=== PATIENT | female | born 1950 | race Caucasian/White ===

== ENCOUNTER → 2018-02-27 10:20 | Outpatient (CLI) | payer MEDICARE, BC, SELFPAY | PROVIDERS: PCP Family Medicine; Visit Provider Orthopaedic Surgery | DX: M17.12 Unilateral primary osteoarthritis, left knee (principal) | CPT/HCPCS: 20610; 99213; J1040 ==

== ENCOUNTER 2018-04-30 11:36 | Emergency (ER) | payer MEDICARE, BC, SELFPAY ==
[2018-04-30 11:56] VITALS: BP 144/81; PULSE 71; RESP 18; TEMP 36.5; O2SAT 96
--- NOTE | 2018-04-30 12:30 | W.ED.GENAD ---
Discharge Plan Disposition Patient Disposition: HOME Condition: Stable Discharge Details Chief Complaint: AnimalBite Clinical Impression: Dog bite of extremity Primary Care Provider: Horace Lopez ED Provider: Nayeli Felix Home Meds and New Rx's Prescriptions: New doxycycline hyclate 100 mg capsule 100 mg PO BID Qty: 13 RF: 0 Continue fluoxetine 40 MG capsule 40 mg PO DAILY Qty: 90 RF: 3 levothyroxine 137 MCG tablet 137 mcg PO DAILY Qty: 90 RF: 2 ctribnkyna-naidjsd-bewpeodk [Fiorinal] 50-325-40 mg capsule 1 - 2 cap PO Q8H PRN Qty: 30 RF: 0 Discharge Instructions Instructions: Doxycycline (By mouth), Animal Bite (ED), Cellulitis (ED) Additional Instructions: Please return immediately to the emergency department if you develop any new or worsening symptoms or if he become otherwise concerned. It is extremely important that you make an appointment to see by your primary care doctor within 1 week in follow-up for this visit Referrals: Horace Lopez [Primary Care Provider] - Discharge Data Discharge Date/Time-TO BE ENTERED AT DEPARTURE: 04/30/18 13:19 Medical Decision Making Unique Harris is a 67 y/o woman with h/o hypothyroidism who presented to the emergency department today for new redness yesterday around wounds from dog bite that occurred 4 days ago. On exam Pt is very well and non-toxic appearing. Three 0.5 cm wounds to right forearm, one 0.5 cm wound to left ulnar wrist. Central crusting and 3mm surrounding erythema all wounds. No drainage, no fluctuance, no edema, NTTP. No bony TTP. Exam/hx not c/w retained FB, sepsis, tendon/joint involvement, fx. Concern for possible early cellulitis. Plan for doxycycline as Pt with PNC allergy. Will also update tetanus. Lengthy discussion with Pt re: RTED precautions and importance of outpt f/u with PCP. Pt is amenable to the plan. Medical Records Medical records reviewed: Yes I reviewed the patient's medical records. HPI General Mode of arrival: ambulatory. Date/Time Provider Initiated Documentation: 04/30/18 12:07. Limitations to Documentation: no limitations. Information obtained by: patient, RN notes reviewed and old records reviewed. HPI Narrative: Unique Harris is a 67 y/o woman with h/o hypothyroidism presenting to the emergency deparment with dog bite. Pt reports that 4 days ago she was bitten by a dog that she was fostering. Pt reports that dog was a siberian husky with up to date rabies vaccination. Dog is now back with prior foster home. Pt reports that dog bit her because she was in between the dog and food. She reports bites were superficial to right forearm and right wrist, no other injuries. She has been putting OTC abx ointment on wounds. Pt reports that she noticed redness around the wounds that seems to be worsening today. No drainage, no pain, no fevers, no n/v/d, no other rash. Feels otherwise well and in her usual state of health. Eating and drinking normally. Related Data Home Medications Medication Instructions Recorded Confirmed fluoxetine 40 mg PO DAILY #90 tab-cap 10/30/17 levothyroxine 137 mcg PO DAILY #90 tab-cap 01/31/18 axfydepleh-jorrvvx-bmakkyrf 50 1 - 2 cap PO Q8H PRN #30 tab-cap 04/02/18 mg-325 mg-40 mg capsule doxycycline hyclate 100 mg PO BID #13 cap 04/30/18 Previous Rx's Medication Instructions Recorded fluoxetine 40 mg PO DAILY #90 tab-cap 10/30/17 levothyroxine 137 mcg PO DAILY #90 tab-cap 01/31/18 emwlkeslgm-zjvoqzh-iebrtqnm 50 1 - 2 cap PO Q8H PRN #30 tab-cap 04/02/18 mg-325 mg-40 mg capsule doxycycline hyclate 100 mg PO BID #13 cap 04/30/18 Allergies Allergy/AdvReac Type Severity Reaction Status Date / Time Penicillins Allergy Severe Anaphylaxsi Unverified 04/30/18 11:59 s General Stated Complaint: AnimalBite BRANDON: 4 Review of Systems Review of Systems Constitutional: denies fevers Eyes: denies eye pain ENT: denies facial pain, dental pain, sore throat Cardiovascular: denies chest pain Respiratory: denies SOB, cough GI: denies abdominal pain, vomiting, diarrhea : denies flank pain MSK: denies back pain, neck pain, arthralgias, myalgias Skin: denies rash, reports skin wounds Neuro: denies headaches, weakness, n/t PFSH Family History Mother Essential hypertension Personal history of malignant neoplasm Depression Hyperlipidemia Cerebrovascular accident Father Heart disease Asthma Brother Alcohol abuse Essential hypertension Hyperlipidemia Grandfather Heart disease Grandfather Personal history of malignant neoplasm Heart disease Grandmother Personal history of malignant neoplasm Grandmother Heart disease Son No problems noted. Daughter No problems noted. Daughter No problems noted. Social History Smoking/Tobacco Use Status: Never Surgical History BUNIONECTOMY Ligation of fallopian tube Reduction mammoplasty Exam Narrative Exam Narrative: Constitutional: well and dii-vegnz-pctfqjhgs, pleasant, conversing normally HENT: head atraumatic, normocephalic normal inspection, mucous membranes moist Eyes: conjunctiva normal, sclera normal, pupils 3mm b/l Neck: no stridor, normal ROM, trachea midline Resp: normal work of breathing, LCTAB Cardio: normal rate, normal rhythm, no murmur appreciated Skin: warm, dry, normal color, no rash. 3 0.5cm healing wounds right forearm with 2-3mm surrounding erythema, 1 0.5cm healing wound left ulnar wrist with 2-3mm surrounding erythema, no drainage, no fluctuance, no edema, no bony TTP of either forearm or wrist, FROM b/l wrists, painless Neuro: alert, not altered, grossly non-focal, normal tone Psych: normal mood, normal affect, normal behavior Course Vital Signs Temperature 36.5 C 04/30/18 11:56 Pulse 71 04/30/18 11:56 Respiratory Rate 18 04/30/18 11:56 Blood Pressure 144/81 H 04/30/18 11:56 Pulse Oximetry 96 04/30/18 11:56 Temperature 36.5 C 04/30/18 11:56 Temperature Source Temporal Artery Scan 04/30/18 11:56 Pulse 71 04/30/18 11:56 Respiratory Rate 18 04/30/18 11:56 Blood Pressure 144/81 H 04/30/18 11:56 Pulse Oximetry 96 04/30/18 11:56 Oxygen Delivery Method Room Air 04/30/18 11:56 Oxygen Flow Rate 0 04/30/18 11:56 Pain Level 4 04/30/18 11:56
[2018-04-30] MEDS: Doxycycline Hyclate 100 MG CAP PO (13:15)
--- NOTE | 2018-04-30 17:44 | NUR.NOTE ---
Nursing Note: Faxed the animal bite report form to the [facility] [employer] for follow up. Received a call later in the afternoon from Rosenda Aguilera the animal nutritionist and she stated the dog was UTD and that she had followed up on the report. Ruthie Owen.
--- NOTE | 2018-05-01 20:54 | ED.GENADUL_ITS ---
Discharge Plan Disposition Patient Disposition: HOME Condition: Stable Discharge Details Chief Complaint: AnimalBite Clinical Impression: Dog bite of extremity Primary Care Provider: Horace Lopez ED Provider: Nayeli Felix Home Meds and New Rx's Prescriptions: New doxycycline hyclate 100 mg capsule 100 mg PO BID Qty: 13 RF: 0 Continue fluoxetine 40 MG capsule 40 mg PO DAILY Qty: 90 RF: 3 levothyroxine 137 MCG tablet 137 mcg PO DAILY Qty: 90 RF: 2 nveaxlbgsh-exmeuhy-pwvmglek [Fiorinal] 50-325-40 mg capsule 1 - 2 cap PO Q8H PRN Qty: 30 RF: 0 Discharge Instructions Instructions: Doxycycline (By mouth), Animal Bite (ED), Cellulitis (ED) Additional Instructions: Please return immediately to the emergency department if you develop any new or worsening symptoms or if he become otherwise concerned. It is extremely important that you make an appointment to see by your primary care doctor within 1 week in follow-up for this visit Referrals: Horace Lopez [Primary Care Provider] - Discharge Data Discharge Date/Time-TO BE ENTERED AT DEPARTURE: 04/30/18 13:19 Medical Decision Making Unique Harris is a 67 y/o woman with h/o hypothyroidism who presented to the emergency department today for new redness yesterday around wounds from dog bite that occurred 4 days ago. On exam Pt is very well and non-toxic appearing. Three 0.5 cm wounds to right forearm, one 0.5 cm wound to left ulnar wrist. Central crusting and 3mm surrounding erythema all wounds. No drainage, no fluctuance, no edema, NTTP. No bony TTP. Exam/hx not c/w retained FB, sepsis, tendon/joint involvement, fx. Concern for possible early cellulitis. Plan for doxycycline as Pt with PNC allergy. Will also update tetanus. Lengthy discussion with Pt re: RTED precautions and importance of outpt f/u with PCP. Pt is amenable to the plan. Medical Records Medical records reviewed: Yes I reviewed the patient's medical records. HPI General Mode of arrival: ambulatory . Date/Time Provider Initiated Documentation: 04/30/18 12:07 . Limitations to Documentation: no limitations . Information obtained by: patient, RN notes reviewed and old records reviewed . HPI Narrative: Unique Harris is a 67 y/o woman with h/o hypothyroidism presenting to the emergency deparment with dog bite. Pt reports that 4 days ago she was bitten by a dog that she was fostering. Pt reports that dog was a siberian husky with up to date rabies vaccination. Dog is now back with prior foster home. Pt reports that dog bit her because she was in between the dog and food. She reports bites were superficial to right forearm and right wrist, no other injuries. She has been putting OTC abx ointment on wounds. Pt reports that she noticed redness around the wounds that seems to be worsening today. No drainage, no pain, no fevers, no n/v/d, no other rash. Feels otherwise well and in her usual state of health. Eating and drinking normally. Related Data Home Medications Medication Instructions Recorded Confirmed fluoxetine 40 mg PO DAILY #90 tab-cap 10/30/17 levothyroxine 137 mcg PO DAILY #90 tab-cap 01/31/18 nxjcfmqgec-lojlcrt-jbakaxgg 50 1 - 2 cap PO Q8H PRN #30 tab-cap 04/02/18 mg-325 mg-40 mg capsule doxycycline hyclate 100 mg PO BID #13 cap 04/30/18 Previous Rx's Medication Instructions Recorded fluoxetine 40 mg PO DAILY #90 tab-cap 10/30/17 levothyroxine 137 mcg PO DAILY #90 tab-cap 01/31/18 wtbkthzujz-qqiczmk-wpodieqd 50 1 - 2 cap PO Q8H PRN #30 tab-cap 04/02/18 mg-325 mg-40 mg capsule doxycycline hyclate 100 mg PO BID #13 cap 04/30/18 Allergies Allergy/AdvReac Type Severity Reaction Status Date / Time Penicillins Allergy Severe Anaphylaxsi Unverified 04/30/18 11:59 s General Stated Complaint: AnimalBite BRANDON: 4 Review of Systems Review of Systems Constitutional: denies fevers Eyes: denies eye pain ENT: denies facial pain, dental pain, sore throat Cardiovascular: denies chest pain Respiratory: denies SOB, cough GI: denies abdominal pain, vomiting, diarrhea : denies flank pain MSK: denies back pain, neck pain, arthralgias, myalgias Skin: denies rash, reports skin wounds Neuro: denies headaches, weakness, n/t PFSH Family History Mother Essential hypertension Personal history of malignant neoplasm Depression Hyperlipidemia Cerebrovascular accident Father Heart disease Asthma Brother Alcohol abuse Essential hypertension Hyperlipidemia Grandfather Heart disease Grandfather Personal history of malignant neoplasm Heart disease Grandmother Personal history of malignant neoplasm Grandmother Heart disease Son No problems noted. Daughter No problems noted. Daughter No problems noted. Social History Smoking/Tobacco Use Status: Never Surgical History BUNIONECTOMY Ligation of fallopian tube Reduction mammoplasty Exam Narrative Exam Narrative: Constitutional: well and tgm-jtcug-oarxidlwd, pleasant, conversing normally HENT: head atraumatic, normocephalic normal inspection, mucous membranes moist Eyes: conjunctiva normal, sclera normal, pupils 3mm b/l Neck: no stridor, normal ROM, trachea midline Resp: normal work of breathing, LCTAB Cardio: normal rate, normal rhythm, no murmur appreciated Skin: warm, dry, normal color, no rash. 3 0.5cm healing wounds right forearm with 2-3mm surrounding erythema, 1 0.5cm healing wound left ulnar wrist with 2- 3mm surrounding erythema, no drainage, no fluctuance, no edema, no bony TTP of either forearm or wrist, FROM b/l wrists, painless Neuro: alert, not altered, grossly non-focal, normal tone Psych: normal mood, normal affect, normal behavior Course Vital Signs Temperature 36.5 C 04/30/18 11:56 Pulse 71 04/30/18 11:56 Respiratory Rate 18 04/30/18 11:56 Blood Pressure 144/81 H 04/30/18 11:56 Pulse Oximetry 96 04/30/18 11:56 Temperature 36.5 C 04/30/18 11:56 Temperature Source Temporal Artery Scan 04/30/18 11:56 Pulse 71 04/30/18 11:56 Respiratory Rate 18 04/30/18 11:56 Blood Pressure 144/81 H 04/30/18 11:56 Pulse Oximetry 96 04/30/18 11:56 Oxygen Delivery Method Room Air 04/30/18 11:56 Oxygen Flow Rate 0 04/30/18 11:56 Pain Level 4 04/30/18 11:56
== END 2018-04-30 13:19 | disposition home or self-care (01) ==
PROVIDERS: Emergency Provider Student in an Organized Health Care Education/Training Program; PCP Family Medicine
DX: S51.851A Open bite of right forearm, initial encounter (principal); S61.552A Open bite of left wrist, initial encounter; W54.0XXA Bitten by dog, initial encounter
CPT/HCPCS: 90471; 99284; 99283

== ENCOUNTER → 2018-05-29 08:57 | Outpatient (BNVA) | payer MEDICARE, BC, SELFPAY | PROVIDERS: PCP Family Medicine; Visit Provider Orthopaedic Surgery | DX: M17.12 Unilateral primary osteoarthritis, left knee (principal); M75.31 Calcific tendinitis of right shoulder | CPT/HCPCS: 20610; 99211; 99213; J1040 ==

== ENCOUNTER → 2018-08-27 09:26 | Outpatient (BNVA) | payer MEDICARE, OTHER, SELFPAY | PROVIDERS: PCP Family Medicine; Referring Provider Family Medicine; Visit Provider Orthopaedic Surgery | DX: M17.12 Unilateral primary osteoarthritis, left knee (principal); M75.81 Other shoulder lesions, right shoulder | CPT/HCPCS: 20610; 99211; 99213; J1040 ==

== ENCOUNTER 2018-11-15 02:08 | Outpatient (CLI) | payer MEDICARE, OTHER, SELFPAY ==
[2018-11-15 09:39] LABS: HCT 43.7 % (36.0-46.0); HGB 14.6 g/dL (12.0-15.5); Mean Corp. HGB Concentration 33.4 g/dL (32.0-36.0); Mean Corpuscular Hemoglobin 30.9 pg (27.0-33.0); Mean Corpuscular Volume 92.6 fL (80-95); Mean Platelet Volume 9.3 fL (8.0-11.0); Platelet Count 278 x1000/uL (130-400); RBC 4.72 m/cumm (4.00-5.20); RBC Distribution Width 13.1 % (11.7-14.6); White Blood Cell Count 4.96 k/cumm (4.4-10.8)
[2018-11-15 10:15] LABS: ALT 24 U/L (12-78); AST 16 U/L (15-37); Albumin 3.7 g/dL (3.4-5.0); Alkaline Phosphatase 68 U/L (46-116); Anion Gap 9.2 mmol/L (3-11); BUN 13 mg/dL (7-18); Bilirubin, Total 0.6 mg/dL (0.2-1.0); CO2 26.8 mmol/L (21.0-32.0); CREATININE 0.82 mg/dL (0.55-1.02); Calcium 8.9 mg/dL (8.5-10.1); Chloride 101 mmol/L (98-107); Cholesterol 220 mg/dL (50-200); Glucose 92 mg/dL (70-100); HDL Cholesterol 56 mg/dL (40-60); LDL CHOLESTEROL 145 mg/dL (<100); Potassium 4.1 mmol/L (3.5-5.1); Sodium 137 mmol/L (136-145); TSH (W/Ref FT4) 0.95 uIU/mL (0.358-3.74); Total Protein 6.7 g/dL (6.4-8.2); Triglyceride 110 mg/dL (30-150)
== END 2018-11-15 02:28 ==
PROVIDERS: PCP Family Medicine; Visit Provider Family Medicine
DX: E03.9 Hypothyroidism, unspecified (principal); E78.5 Hyperlipidemia, unspecified
CPT/HCPCS: 36415; 80053; 80061; 83721; 85027; 84443

== ENCOUNTER → 2018-12-06 09:15 | Outpatient (BNVA) | payer MEDICARE, OTHER, SELFPAY | PROVIDERS: PCP Family Medicine; Referring Provider Family Medicine; Visit Provider Orthopaedic Surgery | DX: M17.12 Unilateral primary osteoarthritis, left knee (principal) | CPT/HCPCS: 20610; 99211; 99212; J1040 ==

== ENCOUNTER → 2019-01-09 13:36 | Outpatient (BNVA) | payer MEDICARE, OTHER, SELFPAY | PROVIDERS: PCP Family Medicine; Referring Provider Family Medicine; Visit Provider Student in an Organized Health Care Education/Training Program | DX: M17.12 Unilateral primary osteoarthritis, left knee (principal); M25.562 Pain in left knee; Z98.890 Other specified postprocedural states | CPT/HCPCS: 99214 ==

== ENCOUNTER 2019-02-26 11:54 | Outpatient (CLI) | payer MEDICARE, OTHER, SELFPAY ==
--- NOTE | 2019-02-26 11:40 | DI.RAD_ITS ---
SYMPTOM/DIAGNOSIS: PREOPERATIVE PLANNING FOR LEFT TKA STANDING ALIGNMENT: Standing AP views wee performed from the upper pelvis through the ankles. The hip joint spaces are well maintained. There is a slight leg length discrepancy at the right femoral head projecting slightly above the left. There are degenerative changes of the left knee greater at the lateral femoral tibial joint with valgus angulation at the knee. There are mild degenerative changes of both ankles and mild to moderate degenerative changes of the right knee. There is mild valgus angulation at the right knee. IMPRESSION: Degenerative changes of both knees with valgus angulation, left greater than right.
== END 2019-02-26 12:14 ==
PROVIDERS: PCP Family Medicine; Visit Provider Physician Assistant
DX: M17.12 Unilateral primary osteoarthritis, left knee (principal); M21.70 Unequal limb length (acquired), unspecified site; M19.071 Primary osteoarthritis, right ankle and foot; M19.072 Primary osteoarthritis, left ankle and foot; M21.061 Valgus deformity, not elsewhere classified, right knee; Z01.818 Encounter for other preprocedural examination; M25.562 Pain in left knee; Z01.812 Encounter for preprocedural laboratory examination
CPT/HCPCS: 36415; 80048; 85027; 77073

== ENCOUNTER 2019-02-26 12:47 | Outpatient (CLI) | payer MEDICARE, OTHER, SELFPAY ==
--- NOTE | 2019-02-26 12:07 | W.PREOPHP ---
Assessment and Plan (1) Primary osteoarthritis of left knee: Current visit: No Status: Chronic Plan: Standing alignment x-rays were ordered for preoperative planning. Educated patient on surgery covering surgical technique via models, recovery process, benefits and risks including but not limited to risk of infection, blood clot, damage to soft tissue/blood vessels/nerves in detail. After discussion patient gives verbal understanding of risks and elects to proceed with scheduling surgery. Patient had opportunity to have questions answered to their satisfaction. They will contact office if issues arise. Patient will continue to be scheduled for left total knee replacement with Dr. Gustafson. History of Present Illness Narrative: Ms. Harris is a 68-year-old female who presents to clinic for pre-operative visit for scheduled left TKA with Dr. Gustafson. Patient has been experiencing left knee pain for several years. Over the past 2 years patient has made drastic activity modifications and received several intra-articular injections by Dr. Radford which provided pain relief for a few months. Unfortunately, patient has continued to restrict her activity to the point where she had to sell her horse since she is no longer able horseback ride due to exquisite left knee pain. Patient also has diffuse left knee pain elicited with prolonged walking. Due to patient's discomfort, limited motion and feelings of stiffness she is hesitant to engage in desired activity as well as play with her grandchildren. In addition her knee feels weak which causes her to avoid prolonged walking. Patient denies any known falls or injuries to left knee. Patient has been treating her discomfort with taking Aleve daily which helps to reduce her pain slightly. On previous x-rays patient has severe lateral compartment arthritis as well as valgus deformity. As per Dr. Gustafson's latest note patient had an MRI in [address] Radford which also showed focal areas of cartilage loss within the medial compartment. Due to patient's continued pain despite activity modification, injections and NSAIDs she was offered surgical intervention and elects to proceed. Pertinent Surgical Information Denies past medical history of: Hypertension, stroke, cardiac issues, angina, asthma, COPD, sleep apnea, renal issues, liver issues, hepatitis, gastrointestinal issues, ulcers, bleeding disorders, seizures, anxiety, diabetes, autoimmune disorders Patient reports when she had her emergent she received inadequate anesthesia causing her to feel most of the procedure. She has had surgeries with required anesthesia following her including left and right bunionectomies at [facility] (~13 years ago) but continues to be anxious regarding all aspects of anesthesia due to fear of having inadequate pain control. Due to patient's anxiety she met with a nurse supervisor bottle machines at her appointment today to help answer her questions and develop a plan. Patient also reports being diagnosed with heart murmur while in high school or college. As per patient she underwent a cardiac work-up which did not reveal any murmur or structural disease. Patient denies any issues or additional reports of murmur since that time as a young teen. Patient denies all cardiac review of systems at today's appointment. Denies prior complications from surgery. Review of Systems Constitutional Denies fever(s), Denies frequent falls and Reports headache(s) (most migraines; reports are less frequent) Eyes Denies change in vision ENT Denies dizziness, Denies ear discharge, Reports headache(s) (most migraines; reports are less frequent), Denies epistaxis, Denies nasal discharge and Denies sore throat Cardiovascular Denies chest pain, Denies rapid heart rate, Denies irregular heart rhythm, Denies dyspnea, Denies dyspnea on exertion, Denies orthopnea, Denies paroxysmal nocturnal dyspnea and Denies slow heart rate Respiratory Denies cough, Denies dyspnea, Denies dyspnea on exertion and Denies wheezing Gastrointestinal Denies abdominal pain, Denies melena, Denies hematochezia, Denies constipation, Denies diarrhea, Denies nausea and Denies vomiting Genitourinary Denies hematuria, Denies dysuria and Denies urinary urgency Musculoskeletal Reports as per HPI, Denies numbness and Reports tingling (in right arm with riding in a car) Neurologic Denies dizziness, Denies frequent falls, Reports headache(s) (most migraines; reports are less frequent), Denies numbness and Reports tingling (in right arm with riding in a car) Allergic/Immunologic Denies wheezing [facility] Medical History Actinic keratosis (Chronic) [facility] [place] derm [place]/[facility] Depressive disorder (Chronic) 2010 RECURRENT Hyperlipidemia (Acute) Hypothyroidism (Acute 09/21/12) Migraine (Acute 07/04/13) Osteopenia (Acute) Surgical History BUNIONECTOMY bilateral History of section (Chronic) Hx of hernia repair (Chronic) Right side back in the 90s per pt. Ligation of fallopian tube Reduction mammoplasty B/L Family History Mother Essential hypertension Personal history of malignant neoplasm COLON Depression Hyperlipidemia Stroke Father Heart disease Asthma Brother Alcohol abuse Essential hypertension Hyperlipidemia Grandfather Heart disease Grandfather Personal history of malignant neoplasm LUNG Heart disease Grandmother Personal history of malignant neoplasm COLON Grandmother Heart disease Son No problems noted. Daughter No problems noted. Daughter No problems noted. Social History (Updated 02/26/19 @ 12:15 by Katie Mc) Smoking/Tobacco Use Status: Never Alcohol Intake: never Drug use: Never current occupation: educator Other: - [employer] What is your relationship status?: Panel score (0-1 are the most socially isolated patients): 1 Do you feel safe in your relationship?: Yes Meds Home Medications Medication Instructions Recorded Confirmed Type gfvwleiujj-lskdrux-svzrsmzc 50 1 - 2 cap PO Q8H PRN #30 tab-cap 04/02/18 02/26/19 Rx mg-325 mg-40 mg capsule levothyroxine 137 mcg tablet 137 mcg PO DAILY #90 tab-cap 11/29/18 02/26/19 Rx fluoxetine 40 mg capsule 40 mg PO DAILY #90 tab-cap 02/06/19 02/26/19 Rx vitamins A,C,Y-itql-nushwi 7,160 1 tab PO BID tab 02/26/19 02/26/19 History unit-113 mg-100 unit tablet Allergies Allergy/AdvReac Type Severity Reaction Status Date / Time Penicillins Allergy Severe Anaphylaxsi Unverified 02/26/19 12:56 s Exam Const General: cooperative and no acute distress [facility] Head: normal to inspection, normocephalic and atraumatic Ears: external ears normal General nose exam: external nose normal and no nasal discharge Face and sinus: face symmetric Mouth: oral mucosae normal, lip normal, tongue normal and moist mucous membranes Teeth and gingiva: dentition normal Throat: posterior oropharynx normal Eyes General: appearance normal, both eyes and all related structures Pupils: PERRL EOM: EOM intact bilaterally Neck Neck: trachea midline Carotids: normal carotid upstroke Lymphatic: no lymphadenopathy noted Resp Effort & Inspection: normal respiratory effort and able to speak in complete sentences Auscultation: clear to auscultation bilaterally, no rales, no rhonchi and no wheezes Cardio Heart Sounds: S1 normal, S2 normal and no murmurs (no murmur was appreciated by provider at today's appointment) Pulses: radial pulses present bilaterally GI Palpation: soft, no hepatosplenomegaly and nontender Auscultation: normal bowel sounds Skin General skin exam: no rashes or lesions noted Results Labs : 02/26/19 13:40 02/26/19 13:40
[2019-02-26 14:15] LABS: HCT 42.4 % (36.0-46.0); HGB 14.5 g/dL (12.0-15.5); Mean Corp. HGB Concentration 34.2 g/dL (32.0-36.0); Mean Corpuscular Hemoglobin 30.7 pg (27.0-33.0); Mean Corpuscular Volume 89.8 fL (80-95); Mean Platelet Volume 9.6 fL (8.0-11.0); Platelet Count 308 x1000/uL (130-400); RBC 4.72 m/cumm (4.00-5.20); RBC Distribution Width 13.1 % (11.7-14.6); White Blood Cell Count 6.97 k/cumm (4.4-10.8)
[2019-02-26 21:13] LABS: Anion Gap 13.2 mmol/L (3-11); BUN 20 mg/dL (7-18); CO2 22.8 mmol/L (21.0-32.0); CREATININE 0.82 mg/dL (0.55-1.02); Chloride 104 mmol/L (98-107); Glucose 79 mg/dL (70-100); Potassium 4.1 mmol/L (3.5-5.1); Sodium 140 mmol/L (136-145)
== END 2019-02-26 13:07 ==
PROVIDERS: PCP Family Medicine; Visit Provider Student in an Organized Health Care Education/Training Program
DX: M25.562 Pain in left knee (principal); M17.12 Unilateral primary osteoarthritis, left knee; Z01.812 Encounter for preprocedural laboratory examination; Z01.818 Encounter for other preprocedural examination
CPT/HCPCS: 36415; 80048; 84520; 85027

== ENCOUNTER 2019-03-05 12:43 | Inpatient (IN) | payer MEDICARE, OTHER, SELFPAY ==
[2019-02-26 12:46] VITALS: BP 128/84; PULSE 77; RESP 16; TEMP 36.5; O2SAT 97
[2019-03-05] VITALS (12 sets, daily range): BP systolic 97–138; BP diastolic 59–87; PULSE 56–76; RESP 12–22; TEMP 36–36.6; O2SAT 95–100
[2019-03-05] MEDS: Lactated Ringers 1,000 ML 80 ML IV ×3 (12:10→17:04)
[2019-03-05] MEDS: Celecoxib 200 MG CAP 400 MG PO (12:42)
[2019-03-05] MEDS: Gabapentin 300 MG CAP PO ×2 (12:42→21:23)
[2019-03-05] MEDS: Acetaminophen 500 MG TAB 1000 MG PO ×2 (12:42→20:10)
[2019-03-05] MEDS: oxyCODONE-CR 10 MG TABCR PO (12:43)
[2019-03-05] MEDS: Bupivacaine 0.25% Pres-Free 30 ML VIAL ×2 (13:05→15:00)
[2019-03-05] MEDS: Bupivacaine 0.25% Pres-Free 10 ML VIAL (15:00)
[2019-03-05] MEDS: Ketorolac 30 MG/ML VIAL (15:00)
[2019-03-05] MEDS: Normal Saline 20 ML VIAL (15:00)
--- NOTE | 2019-03-05 16:52 | NUR.NOTE ---
Nursing Note: Patient arrives from PACU via stretcher at 1630. Transferred to bed via hover mat. VSS. See worklist. HR regular. Apical heart rate 54. Lungs clear, normal bowel sounds. Patient alert and oriented x3. Denies pain at this time. Sipping on iced water. Positive pedal pulses bilaterally. Rosado draining. Patient reports tingling in feet bilaterally. No numbness. Patient able to move and wiggle toes.
[2019-03-05] MEDS: Celecoxib 200 MG CAP PO (20:10)
[2019-03-06 03:35] VITALS: BP 112/69; PULSE 62; RESP 17; TEMP 36.3; O2SAT 95
[2019-03-06] MEDS: oxyCODONE 5 MG TAB PO ×2 (05:46→11:31)
[2019-03-06] MEDS: Lactated Ringers 1,000 ML 80 ML IV (05:47)
--- NOTE | 2019-03-06 06:30 | ROE_ITS ---
Date of service: 03/05/19 Time of Service: 16:30 Operative Note DATE OF PROCEDURE: 03/05/19 PRE-OP DIAGNOSIS: Left Knee Arthritis POST-OP DIAGNOSIS: same PROCEDURE: Left Total Knee Arthroplasty with Intraoperative Navigation SURGEON: Gwyn Gustafson DATA ENTRY SPECIALIST: Katie Mc ANESTHESIA: regional and spinal ESTIMATED BLOOD LOSS: 200 PATHOLOGY: none sent TOURNIQUET TIME: 34 COMPLICATIONS: None Patient was transported to: PACU Patient's condition: stable Implants: 1. Depuy Attune Posterior Stabilized Femoral Component, Size 6 Narrow 2. Depuy Attune Fixed Platform Tibial Component, Size 4 3. Depuy Attune 6x6 Fixed, Stabilized Poly 4. Depuy Attune Patellar Component, Size 32mm Indications: I have seen Unique in clinic for symptoms of knee arthritis, confirmed with radiographic findings. She has exhausted nonoperative methods and was having significant limitations in daily function and desired better function and less pain. I discussed the technical details of a knee replacement. I explained the risks of the procedure to include, but not limited to, bleeding, infection, pain, stiffness, fracture, damage to nerves and vessels, damage to muscles and tendons, loosening, need for repeat procedure, blood clot and cardiopulmonary demise. Despite these risks, Unique elected to proceed. Findings: There was significant signs of arthritis throughout the knee. These involved all 3 compartments, most notably of the lateral tibia and femur. Procedure Description: Unique was greeted in the preoperative holding area where the correct side was identified and marked. The consent was reviewed with the patient and signed. The history and physical was updated. All questions were answered. Preoperative mediacations were administered: Acetaminophen 1000mg, Celebrex 400mg, Gabapentin 300mg, and Oxycontin 10mg. An adductor canal block was then administered by the anesthesia team in the PACU. Unique was taken back to the operating room. A spinal anesthestic was then administered. The patient was placed into the supine position on the operating room table. A nonsterile tourniquet was placed high onto the leg but only used for cementing. Posts were placed for positioning during the procedure. All bony prominences were well padded. Prophylactic antibiotics in the form of Vancomycin were administered. 1g of Tranxemic Acid was given intravenously within 30 minutes of incision. The left leg was then prepped with Chloraprep and draped in a standard fashion with impervious stockinette and extremity drape with Iodine impregnated skin protection. A timeout to confirm correct identity, side and site, procedure, allergies, anesthesia, and medical concerns was performed. With the knee in some flexion, a midline incision was made overlying the knee. Full thickness skin flaps were raised once the extensor mechanism was encountered. These were raised medially and laterally. Any bleeding was controlled with electrocautery. Once the extensor mechanism was fully exposed, a medial parapatellar arthrotomy was performed in a flexed position. All bleeding from the arthrotomy and the geniculate arteries was coagulated. A medial subperiosteal peel was performed with electrocautery to the midcoronal plane. The fat pad was removed while keeping the patellar tendon protected. The anterior distal femur synovium was removed for later visualization. The ACL and PCL were resected and the anterior horn of the lateral meniscus was transected. The knee was then flexed with the patella everted. Large osteophytes from the tibia were removed. Large osteophytes from the femur were removed. There was some hypoplasia of the lateral femoral condyle and any remnant cartilage of the medial femoral condyle was removed for appropriate thickness. A single starting pin was then placed 1cm anterior to the PCL insertion and the notch in the direction of the femoral head. The OrthoAlign device was applied over the pin. It was oriented to be in line with the epicondylar axis and the trochlear groove. It was then pinned into place. The navigation computer was then turned on and calibrated. The distal femur cut was set at 0 degrees varus/valgus and 2.5 degrees flexion. The distal femur cutting guide then was positioned for a 9mm cut. The distal femur was cut with an oscillating saw while protecting the soft tissues. The tibia was then addressed. The OrthoAlign device was placed over the tibial tubercle and medial tibia and secured into position. Once again, OrthoAlign was calibrated and then set for a 0 degree varus/valgus cut and 3 degrees of posterior slope. With this locked into position, the cut thickness stylus was used to assess cut thickness. The lateral side, most involved side, was set for a 4mm cut. This was then held in position and pinned into place with 2 additional pins and a cross pin for stability. The medial and lateral collateral ligaments were protected and the cut was performed. With this completed, it was assessed and noted to be of appropriate dimensions. The guide and OrthoAlign was removed. A spacer block was inserted and the knee was brought into extension. The 6mm spacer block provided full extension, without hyperextension and with stability of both the medial and lateral collateral ligaments was assessed. The pins from the femur and the tibia were then removed. The distal femur was then sized. The anterior stylus was placed onto the lateral ridge of the anterior femur. This indicated a size 6 narrow femur. The external rotation of the guide was adjusted to 3 degrees to match the epicondylar axis, perpendicular to [place]?s line. The 4-in-1 cutting guide was the placed. The posterior medial femur cut was evaluated and appeared of good thickness. The spacer block was inserted underneath the cutting guide and stability was confirmed in 90 degrees of flexion. An shalini wing was used to confirm appropriate position of the anterior cut to avoid notching. This cutting guide was ensured to be flush on the cut surface and then pinned into place with headed pins. While protecting the soft tissues, quad tendon, and collateral ligaments, the anterior and posterior cuts were performed with a saw. The central two pins were removed and the posterior and anterior chamfers were cut next. The notch-cutting guide was placed. This was pinned to lateralize the femoral component as much as possible while keeping it flush on the cut surface. This was then pinned into position. A reciprocating saw was used to make the notch cut. A rasp smoothed the cut surfaces. A trial posterior stabilized femoral component was then inserted, impacted down to the cut surfaces, and the lug holes were drilled. A provisional trial tibial component was placed and the knee was brought through range of motion. There was noted to be excellent extension and flexion. There was no significant instability. The patella was tracking without thumbs. The tibial cut surface was fully exposed. The medial and lateral menisci were removed. The tibia was then sized as a 4. The tibia had been previously marked during trialing to correspond to the center of the tibial component to help with rotation. The trial was aligned to this francisco, approximately rotated to the medial 1/3rd of the tibial tubercle. The trial was pinned into place. The tibia was prepared with a reamer and a keel punch. The knee was then brought into extension and the patella was measured as 25mm. Using the patellar clamp and cut guide, this was resected to a flat surface with at least 13mm of thickness remaining. The size 32mm patella fit the best. This was oriented and then clamped into position. The lugs were drilled. The trial components were removed. The final components, except for the polyethylene were opened on the back table. The periosteal and capsular tissues, especially posteriorly, around the knee were then systematically injected with a periarticular cocktail consisting of 50cc 0.25% Marcaine, 30mg Ketorolac, 20cc of Exparal and 50cc of injectable saline. The tourniquet was then inflated to 275mmHg. The knee was thoroughly irrigated with a pulse lavage and dried. On the back table, with the implants opened, the cement was mixed. 2 batches of antibiotic laden cement were prepared with vacuum assistance. After the cement was ready a small amount was placed on to the back side of the tibial component at the keel. A small amount was placed onto the posterior flange of the femur. Cement was manual pressurized and impregnated into the cut surface of the tibia. The tibial component was then inserted into the cut surface and impacted into position. Excess cement was removed and the component was reimpacted. Again, excess cement was removed and our attention was then turned to the femur. The femoral cut surface was once again dried and cement was manually impacted into the cut surface. The femoral component was lined with the lug holes and impacted. Excess cement was removed. It was ensured to be down against the cut surface. The trial polyethylene was then inserted and the leg was brought out into full extension for the duration of the cement curing process, approximately 15min. Cement was lastly manually impacted into the cut surface of the patella and the patellar button was clamped into position and held. During this process attention was turned to the gutters of the knee and for all interfaces for any excess cement. After the cement had finally cured, approximately 15min, the clamp was removed from the patella and the knee was taken through range of motion. A size 6mm polyethylene component provided the best range of motion and stability with less than 2mm gapping with medial and lateral stress and full extension without significant hyperextension. The patella was tracking with a no-thumbs technique. The trial poly was removed and once again the knee was checked for any loose, excess, or errant cement. The poly component was then inserted and impacted into position after cleaning and drying the tibial tray. The capsule was then reapproximated with a No. 1 Vicryl at multiple locations. The capsule was finally closed with a No. 2 Stratafix, barbed suture. The tourniquet was then released and the arthrotomy appeared watertight without significant bleeding. The second dosing of 1g TXA was started. Deep tissues were then reapproximated with 0 Vicryl and 2-0 Vicryl. The skin was closed with a running 3-0 Monocryl in a subcuticular fashion. This was reinforced with skin glue. A Mepilex silver dressing was applied along with a [id number] MICHAEL wrap. A CryoCuff was applied. Unique was transferred to the hospital bed without difficulty an suffering no apparent complication. Unique has a good prognosis. Physical therapy will start today and without restrictions, weight-bearing as tolerated. Aspirin 81mg BID will be used for DVT prophylaxis.
--- NOTE | 2019-03-06 07:44 | W.PM.PROGNOT ---
Date of Service Date of service: 03/06/19 Time of Service: 07:44 Assessment and Plan (1) Primary osteoarthritis of left knee: Current visit: No Status: Chronic Unique is postop day #1 from a left total knee arthroplasty. She is doing well. There are no acute comp occasions. She will mobilize with physical therapy this morning. Rosado catheter will be discontinued. We will continue to watch, manage, and treat her pain with a multimodal pain therapy. She is weightbearing as tolerated with assistive device. She is to discharge to home when she clears physical therapy. Aspirin 81 mg twice daily for DVT prophylaxis. Subjective Interval history since last seen: Unique reports been doing well. She has had some mild pain but it has been manageable. She was able to sleep some throughout the night. She has not get out of the bed yet. She denies chest pain or shortness of breath. She has no fever no chills. Exam Narrative Exam Narrative: Laying comfortably supine in the bed. Left leg is wrapped with Ramin wrap with no drainage. She is able to flex and extend the ankle as well as the great toe. Sensation intact light touch over the deep and superficial peroneal nerves and tibial nerve. The foot is warm and well-perfused. Objective Objective Clinical Data: Vital Signs Temperature 36.3 C L 03/06/19 03:35 Temperature Source Tympanic 03/06/19 03:35 Pulse 62 03/06/19 03:35 Pulse Rhythm Regular 03/05/19 20:52 Respiratory Rate 17 03/06/19 03:35 Respiratory Effort 03/05/19 20:52 Respiratory Depth Normal 03/05/19 20:52 Respiratory Pattern Normal 03/05/19 20:52 Blood Pressure 112/69 03/06/19 03:35 Pulse Oximetry 95 03/06/19 03:35 Respiratory End-tidal CO2 28 03/05/19 16:14 Oxygen Delivery Method Room Air 03/06/19 03:35 Oxygen Flow Rate 0 03/06/19 03:35 Pain Level 1 03/06/19 03:35 Intake & Output 03/05/19 03/05/19 03/06/19 11:59 23:59 11:59 Intake Total 2880 / 2880 714.667 / 714.667 Output Total 1450 / 1450 2049 Balance 1430 / 1430 -1335.333 / -1335.333 Weight 79.1 kg Intake: IV 2220 / 2220 714.667 / 714.667 Oral 660 / 660 Output: Urine 1450 / 1450 2049 Other: Urine Color Pale Yellow Urine Appearance Clear Clear Emesis Description None
[2019-03-06 08:05] VITALS: BP 114/71; PULSE 64; RESP 17; TEMP 36.6; O2SAT 96
[2019-03-06] MEDS: Dexamethasone 4 MG TAB PO (08:07)
[2019-03-06] MEDS: Aspirin E.C. 81 MG TABEC PO (08:07)
[2019-03-06] MEDS: Pantoprazole 40 MG TABCR PO (08:07)
[2019-03-06] MEDS: FLUoxetine 20 MG CAP PO (08:07)
[2019-03-06] MEDS: Acetaminophen 500 MG TAB 1000 MG PO ×2 (08:07→08:16)
[2019-03-06] MEDS: Normal Saline Flush 10 ML SYR IV (08:08)
[2019-03-06] MEDS: Celecoxib 200 MG CAP PO (08:16)
--- NOTE | 2019-03-06 09:46 | INITIAL_ITS ---
- If Service Date Differs Date of service: 03/06/19 Time of Service: 09:46 Care Management Initial Assess REASON FOR HOSPITALIZATION:: Primary Osteoarthritis of left knee PAST MEDICAL HISTORY/PAST SURGICAL HISTORY:: Medical History: Actinic keratosis (Chronic). [facility] [place]. Depressive disorder (Chronic). Hyperlipidemia (Acute). Hypothyroidism (Acute 09/21/12). Migraine (Acute 07/04/13). Osteopenia (Acute). Surgical History: BUNIONECTOMY - bilateral. History of section (Chronic). Hx of hernia repair (Chronic). Ligation of fallopian tube. Reduction mammoplasty. B/L PREVIOUS FUNCTIONAL STATUS/SOCIAL/FAMILY SUPPORTS:: Unique lives in a single family, 2 level home in [facility] with her Demarcus. She is totally independent in the community and with all care and activities. Unique and Demarcus have 3 children, 2 of which are living in the area. Unique describes a strong nuvance healthly support system which includes her , children and 3 [id number]. 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 CURRENT FUNCTIONAL STATUS:: Unique was lying in bed when CM met with her. She was pleasant and smiling and readily engaged in conversation. She informed CM that she has a walker and a cane already at6 home and does not forsee needing any services at home. ADVANCE DIRECTIVES:: On file. [facility] Rico Harris Has patient been provided with information about the portal?: No Did the patient sign up for the portal?: Yes (previously) CODE STATUS:: Full Code INSURANCE COVERAGE / FINANCIAL ISSUES:: Medicare. [employer] CURRENT HOME/COMMUNITY SERVICES/EQUIPMENT:: none currently but will have a cane and walker at home if needed. PRIMARY CARE PHYSICIAN:: Horace Fitzgerald POTENTIAL DISCHARGE NEEDS:: follow up with surgeon and [id number] plan of care PATIENT/FAMILY EDUCATION NEEDS:: Discharge plan, limitations, follow up plan, Ask Me Three ANTICIPATED BARRIERS TO DISCHARGE:: none identified TRANSPORTATION:: via private vehicle with family when ready PLAN:: Unique will be discharged home with no HH services. She will follow up with her surgeon and discharge plan of care. She will start OP PT in a couple of weeks per provider. Unique will transport via private vehicle with family.
--- NOTE | 2019-03-06 10:18 | PHARADMIT ---
Admission Pharmacy Clinical Review LEFT KNEE DJD Code Status Full Code Current Weight Wgt-79.1 kg Renally Cleared and Narrow Therapeutic Index Meds CrCl~ 60.6 mL/min Meds-OK QTc Value / Action Taken NONE current BP Control, Fever BP-114/71 Tmax-36.6C Electrolytes reviewed NA DVT Prophylaxis ASA-EC Opiate Usage / Scheduled Bowel Regimen Ordered Yes Yes Plt/SCr for Heparin / Enoxaparin NA INR for Warfarin NA H/H stable, WBC/Bands NA Antibiotic appropriateness Vancomycin Pre &Post-OP Cultures and Sensitivities NA Surgical ABX d/c within 24 hr Yes DM control / Insulin Dosing NA Heart Failure (Check EF%) (MICHAEL's, B-Block, Diuretics) NONE IV to PO Switch No Home Meds Reviewed Yes Home Meds Not Ordered Fioricet, Naproxen Comments
[2019-03-06 11:15] VITALS: BP 108/69; PULSE 63; RESP 18; TEMP 36.7; O2SAT 93
--- NOTE | 2019-03-06 11:22 | CHAPLAIN ---
Unique was sitting up in the chair when I visited. Her (?) was with her. She said the surgery went well, and that she had been apprehensive before the surgery, but was feeling comfortable now. I explained my role and offered support.
--- NOTE | 2019-03-06 12:16 | W.PM.DS.N ---
Date of service: 03/06/19 Time of Service: 12:17 DS: Diagnosis Discharge Diagnosis (1) Primary osteoarthritis of left knee: Status: Acute Discharge Plan Disposition Patient Disposition: HOME Condition: Good Discharge Details Reason For Visit: LEFT KNEE DJD Admit Date/Time: 03/05/19 12:43 Admit Provider: Gwyn Gustafson Attending Provider: Gwyn Gustafson [facility] Hospital Course: Patient was admitted to the medical/surgical floor following the procedure. It was tolerated well without any notable medical, surgical, or anesthetic complications. Mobilization began postoperatively. The santamaria catheter was removed and voiding spontaneously. Vitals were stable. Physical therapy worked with the patient and was cleared for discharge home. No acute medical issues. Home Meds and New Rx's Prescriptions: New celecoxib 200 mg capsule 200 mg PO BID PRN (Reason: pain) Qty: 60 RF: 1 aspirin 81 mg tablet,delayed release (DR/EC) 81 mg PO BID Qty: 60 RF: 0 acetaminophen 500 mg tablet 1,000 mg PO Q8H PRN (Reason: pain) Qty: 90 RF: 3 pantoprazole 40 mg tablet,delayed release (DR/EC) 40 mg PO DAILY Qty: 30 RF: 0 oxycodone 5 mg tablet 5 mg PO Q4H Qty: 12 RF: 0 Continued PreserVision AREDS [id number],[id number] fbna-[id number] tablet 1 tab PO BID RF: 0 levothyroxine 137 mcg tablet 137 mcg PO DAILY Qty: 90 RF: 2 fluoxetine 40 mg capsule 40 mg PO DAILY Qty: 90 RF: 3 Discontinued uptmqtsojd-fwwncpc-[id number] [Fiorinal] 50-325-40 mg capsule 1 - 2 cap PO Q8H PRN Qty: 30 RF: 0 naproxen sodium [Aleve] 220 mg Capsule 440 mg PO PRNRF: 0 Discharge Instructions Additional Instructions: Dr. Gustafson?s Total Knee Discharge Instructions Activity: The most important activity is to walk. You should try to take short walks a few times a day. It is important that when resting you work on keeping the knee straight. Avoid putting a pillow behind the knee as this will encourage flexion. Work on range of motion exercises as provided by Physical Therapy. - Start outpatient physical therapy within 2 weeks. You should schedule this to start around your follow-up. - You should wear the HUDSON hose on both legs for 2 weeks. Dressing: Keep the surgical dressing in place for at least one week. After the first week it may be removed and replace with light gauze and tape or nothing. It may get wet after 3 days but avoid soaking the dressing. If it gets wet, just lightly pat dry. Medications: - You should take Tylenol and anti-inflammatory Celebrex as your primary pain control medications - You have been prescribed a stronger pain medication Oxycodone for breakthrough pain, take as needed as prescribed. - You have also been prescribed a stomach acid reduction agent Pantoprozole to help reduce stomach acid and reflux. - You will be taking Aspirin 81mg twice a day for DVT prevention unless instructed otherwise. - If you have constipation you should take Colace or Miralax (both [id number]). It takes most people 3-4 days to have a bowel movement. Follow-up: 2 weeks Referrals: Gwyn Gustafson MD [ [facility] STAFF PHYSICIAN] - Activity:: Activity as Tolerated Equipment/Supplies:: No Equipment Needed Diet:: As Tolerated Discharge Orders Discharge Orders: Discharge Order (Routine); Ordered 03/06/19 Ordered By: Gwyn Gustafson DS: Data Vitals/I&O Vitals and I&O: Vital Signs Temperature 36.7 C 03/06/19 11:15 Temperature Source Tympanic 03/06/19 11:15 Pulse 63 03/06/19 11:15 Pulse Rhythm Regular 03/06/19 08:03 Respiratory Rate 18 03/06/19 11:15 Respiratory Effort Non-Labored 03/06/19 08:03 Respiratory Depth Normal 03/06/19 08:03 Respiratory Pattern Normal 03/06/19 08:03 Blood Pressure 108/69 03/06/19 11:15 Pulse Oximetry 93 L 03/06/19 11:15 Respiratory End-tidal CO2 28 03/05/19 16:14 Oxygen Delivery Method Room Air 03/06/19 11:15 Oxygen Flow Rate 0 03/06/19 11:15 Pain Level 4 03/06/19 11:31 Intake & Output 03/05/19 03/06/19 03/06/19 23:59 11:59 23:59 Intake Total 2880 / 2880 1964.667 / 1963.667 Output Total 1450 / 1450 2400 / 2400 Balance 1430 / 1430 -435.333 / -435.333 Weight 79.1 kg Intake: IV 2220 / 2220 724.667 / 724.667 Oral 660 / 660 1240 / 1240 Output: Urine 1450 / 1450 2400 / 2400 Other: Urine Color Pale Yellow Urine Appearance Clear Clear Urine Odor Normal Emesis Description None Voiding Methods Toilet [facility] Medical History [place]inic [place]Chronic[place] [facility] [place] Depressive disorder (Chronic) 2010 RECURRENT Hyperlipidemia (Acute) Hypothyroidism (Acute 09/21/12) Migraine (Acute 07/04/13) Osteopenia (Acute) Surgical History BUNIONECTOMY bilateral History of section (Chronic) Hx of hernia repair (Chronic) Right side back in the 90s per pt. Ligation of fallopian tube Reduction mammoplasty B/L Family History Mother Essential hypertension Personal history of malignant neoplasm COLON Depression Hyperlipidemia Stroke Father Heart disease Asthma Brother Alcohol abuse Essential hypertension Hyperlipidemia Grandfather Heart disease Grandfather Personal history of malignant neoplasm LUNG Heart disease Grandmother Personal history of malignant neoplasm COLON Grandmother Heart disease Son No problems noted. Daughter No problems noted. Daughter No problems noted. Social History Smoking/Tobacco Use Status: Never Alcohol Intake: never Drug use: Never current occupation: educator Other: - [employer] What is your relationship status?: Panel score (0-1 are the most socially isolated patients): 1 Do you feel safe in your relationship?: Yes
--- NOTE | 2019-03-06 16:49 | IN_ITS ---
Date of service: 03/06/19 Time of Service: 09:03 PT Notes Inpatient Physical Therapy Evaluation Date: 03/06/2019 Referring Doctor: Gwyn Gustafson MD PT Orders: PT CONSULT: s/p L TKA Precautions: Fall. Standard. L LE WBAT. Patient Profile/Admitting Diagnosis: Patient is a 68-year-old female s/p left total knee replacement following a two year diagnosis of osteoarthritis of the left tibiofemoral joint. PMHX: Medical History Actinic keratosis (Chronic) [facility] [place] [facility] [place]/[facility] Depressive disorder (Chronic) 2010 RECURRENT Hyperlipidemia (Acute) Hypothyroidism (Acute 09/21/12) Migraine (Acute 07/04/13) Osteopenia (Acute) Surgical History BUNIONECTOMY bilateral History of section (Chronic) Hx of hernia repair (Chronic) Right side back in the 90s per pt. Ligation of fallopian tube Reduction mammoplasty Social History/Home Situation: Patient reports she lives with her in a two-story home that has three steps to enter with no railing. The stairs to the second story have a railing on the right side when ascending. Patient was independent with all aspects of ADLs without the need for an assistive ambulatory device nor adaptive equipment. Equipment Owned/DME: Patient reports she was given a walker by a friend. Subjective: Mrs. Harris reported having 1/10 pain while laying supine. She stated that she slept intermittently throughout the night, but would awaken when staff would come to take vitals. She denied dizziness, headache, lightheadedness, and nausea. Objective: General Observation: Mrs. Harris was seen laying supine with HOB elevated 30 degrees. She was wearing an antithromboemboli device on the right side, and an michael wrap on the left with a cryocuff over the L knee. Mrs. Harris had an IV in her right brachium. Rosado catheter removed as of early this morning. Mental Status: Alert and oriented x 4 Pain: 1/10 in supine 3/10 during walking Vital Signs: Patient was negative for orthostatic hypotension prior to mobility assessment. ROM: Right Lower Extremity: Hip flexion WFL. Hip abduction WFL. Knee flexion WFL. Ankle dorsiflexion WFL. Ankle plantarflexion WFL. Left Lower Extremity: Hip flexion WFL. Hip abduction WFL. Knee flexion 100 degrees, range limited by MICHAEL Wraps and discomfort at end of range. Ankle dorsiflexion WFL. Ankle plantarflexion WFL. Strength: Right Lower Extremity: Hip flexors 4/5. Hip abductors 4/5. Hip adductors 5/5. Knee flexors 5/5. Knee extensors 5/5. Ankle dorsiflexors 5/5. Ankle plantarflexors 5/5. Left Lower Extremity:Hip flexors 4/5. Hip abductors 5/5. Knee flexors 3-/5. Knee extensors 5/5. Ankle dorsiflexors 5/5. Ankle plantarflexors 5/5. Bed Mobility/Transfers: Rolling I Supine to sit I Sit to stand CGA Stand to sit CGA Bed to chair CGA Chair to bed CGA Gait: Patient ambulated 150? on level surface with a FWW, CGA, and wheelchair follow with a reciprocal gait pattern. Patient ascended and descended three 4- inch steps, and two 6-inch steps with a step-to gait pattern with bilateral rails. Patient exhibited decreased stance-time on L LE, and decreased gait speed. Cues were given for walker management, posture, and overall safety. Balance: Static Sitting: Normal Dynamic Sitting: Normal Static Standing: Normal Dynamic Standing: Fair Special Tests: Mobility Limitations Standardized Measure [facility] 6 clicks Basic Mobility Inpatient Short Form: Raw Score: CMS Score: [] Informed Consent/Education: Patient instructed in purpose of PT consult and plan of care. Mrs. Harris was educated on how to ambulate with FWW, and received gait instruction for ascending and descending stairs. Mrs. Harris was then instructed on an individual exercise program consisting of five gluteal sets, five long arc quadriceps sets, and five ankle pumps. The patient was instructed to hold each repetition for five seconds during the concentric phase, and to perform each exercise once per hour. Assessment: Mrs. Harris?s prognosis is good. She has the support of her at home, and her co-morbidities are not predicted to impact her recovery. She presents with clinical signs and symptoms consistent with current/admitting diagnoses that have resulted to mobility limitations, gait instability, generalized weakness, and impairment of motor control as demonstrated by the following impairment level findings: 1. Decreased strength to L LE major muscle groups 2. Impaired activity tolerance 3. Limitation of joint range of motion in L knee flexion Impairments are contributing to the following functional limitations: 1. Increased dependence with transfers 2. Inability to safely ambulate without assistive device and physical assistance 3. Increase completion time for mobility ADL performance 4. Increased fall risk 5. Inability to negotiate steps alone safely Patient is assessed as a moderate complexity based on the following: History: Patient is a 68-year-old female s/p left total knee replacement following a two-year diagnosis of osteoarthritis of the left tibiofemoral joint. Examination: Demonstrable impairment in strength, balance, and range of motion with underlying impairments and functional limitations as documented above Presentation: Evolving Decision Makin Moderate complexity Goals: N/A. Patient patient goes home today with front wheeled walker for all pe rformance to reduce fall risk and maximize mobility level at home. DISCHARGE RECOMMENDATIONS: Patient will be discharged to home under the care of her . She has been instructed to perform the exercise listed above for two weeks, at which point she will begin receiving outpatient PT services. May benefit from skilled physical therapy services according to orthopedic surgeon's timeline recommendations. Patient will be educated and trained on home exercise program per TKA exercise protocol in preparation for outpatient physical therapy services. TREATMENT CODE/TIME: 94350 x 30 minutes [id number] x 10 minutes Thank you very much for this referral. Singh Falcon, [facility] With the supervison of: Estelita Henriquez PT, DPT, CLT [facility]
== END 2019-03-06 13:20 | disposition home or self-care (01) | DRG 470 ==
LOC: MS 16:25
PROVIDERS: Admitting Provider Student in an Organized Health Care Education/Training Program; PCP Family Medicine; Visit Provider Student in an Organized Health Care Education/Training Program
PROC: 0SRD0J9 Replacement of Left Knee Joint with Synthetic Substitute, Cemented, Open Approach (ICD-10-PCS; CPT 27447; principal; 2019-03-05 14:30)
DX: M17.12 Unilateral primary osteoarthritis, left knee (principal); M25.562 Pain in left knee; Z96.652 Presence of left artificial knee joint; E03.9 Hypothyroidism, unspecified; F32.9 Major depressive disorder, single episode, unspecified; E78.5 Hyperlipidemia, unspecified; M85.80 Other specified disorders of bone density and structure, unspecified site
CPT/HCPCS: 27447; 20985; 76942; 97162; 97530; NC; J1885; J2250; J2405; J8540

== ENCOUNTER 2019-03-21 12:11 | Outpatient (CLI) | payer MEDICARE, OTHER, SELFPAY ==
--- NOTE | 2019-03-21 11:53 | DI.RAD_ITS ---
EXAM: XR KNEE LT 1V INDICATION: F/U. COMPARISON: LEFT KNEE 3 VIEW COMPLETE from 05/30/2017 TECHNIQUE: 2D digital imaging was performed. FINDINGS: Single lateral view was obtained and shows a total knee joint replacement in position. Components ap pear well seated on this lateral view.
--- NOTE | 2019-03-21 11:53 | DI.RAD_ITS ---
EXAM: XR STANDING ALIGNMENT INDICATION: F/U. COMPARISON: XR standing alignment from 02/26/2019 TECHNIQUE: 2D digital imaging was performed. FINDINGS: AP views of both lower extremities were obtained. There are slight degenerative changes of both hips and both SI joints. There is a total knee joint replacement in position on the left. On the right there is degenerative change predominantly involving the lateral tibiofemoral joint.
== END 2019-03-21 12:31 ==
PROVIDERS: PCP Family Medicine; Referring Provider Family Medicine; Visit Provider Student in an Organized Health Care Education/Training Program
DX: M16.0 Bilateral primary osteoarthritis of hip (principal); M53.3 Sacrococcygeal disorders, not elsewhere classified; Z96.652 Presence of left artificial knee joint; M17.11 Unilateral primary osteoarthritis, right knee; Z47.1 Aftercare following joint replacement surgery
CPT/HCPCS: 73560; 77073

== ENCOUNTER → 2019-04-18 11:37 | Outpatient (BNVA) | payer MEDICARE, OTHER, SELFPAY | PROVIDERS: PCP Family Medicine; Referring Provider Family Medicine; Visit Provider Student in an Organized Health Care Education/Training Program | DX: Z47.1 Aftercare following joint replacement surgery (principal); Z96.652 Presence of left artificial knee joint ==

== ENCOUNTER → 2019-05-27 10:08 | Outpatient (BNVA) | payer MEDICARE, OTHER, SELFPAY | PROVIDERS: PCP Family Medicine; Referring Provider Family Medicine; Visit Provider Student in an Organized Health Care Education/Training Program | DX: Z47.1 Aftercare following joint replacement surgery (principal); Z96.652 Presence of left artificial knee joint ==

== ENCOUNTER 2020-02-21 02:52 | Outpatient (CLI) | payer MEDICARE, OTHER, SELFPAY ==
[2020-02-21 12:04] LABS: ALT 23 U/L (14-59); AST 23 U/L (15-37); Albumin 3.8 g/dL (3.4-5.0); Alkaline Phosphatase 70 U/L (46-116); BUN 15 mg/dL (7-18); Bilirubin, Total 0.5 mg/dL (0.2-1.0); CREATININE 0.79 mg/dL (0.55-1.02); Chloride 101 mmol/L (98-107); Glucose 98 mg/dL (74-106); Potassium 4.3 mmol/L (3.5-5.1); Sodium 137 mmol/L (136-145); Total Protein 6.7 g/dL (6.4-8.2)
[2020-02-24 09:27] LABS: Vitamin D 25 Total 27.8 ng/ml (30-100)
== END 2020-02-21 03:12 ==
PROVIDERS: PCP Family Medicine; Visit Provider Family Medicine
DX: E03.9 Hypothyroidism, unspecified (principal); F32.9 Major depressive disorder, single episode, unspecified; M81.0 Age-related osteoporosis without current pathological fracture
CPT/HCPCS: 36415; 80053; 82306; 84443

== ENCOUNTER 2020-03-17 14:21 | Outpatient (CLI) | payer MEDICARE, OTHER, SELFPAY ==
[2020-03-19 11:22] LABS: Patient Race White; SARS-CoV-2 RNA Undetected (Undetected); SARS-CoV-2 Specimen Source Nasopharynx
== END 2020-03-17 14:41 ==
PROVIDERS: PCP Family Medicine; Visit Provider Family Medicine
DX: R51 Headache (principal); M79.10 Myalgia, unspecified site
CPT/HCPCS: U0003

== ENCOUNTER 2020-08-28 02:23 | Outpatient (CLI) | payer MEDICARE, SELFPAY ==
[2020-08-28 13:27] LABS: TSH 0.41 uIU/mL (0.36-3.74)
== END 2020-08-28 02:24 | disposition home or self-care (01) ==
LOC: LBO 02:23
PROVIDERS: PCP Family Medicine; Visit Provider Family Medicine
DX: E03.9 Hypothyroidism, unspecified (principal)
CPT/HCPCS: 36415; 84443

== ENCOUNTER 2021-03-05 17:28 | Outpatient (CLI) | payer MEDICARE, SELFPAY ==
--- NOTE | 2021-03-05 10:30 | DI.RAD_ITS ---
Exam(s) XR CHEST 2V PA LATERAL EXAM: XR CHEST 2V PA LATERAL CLINICAL HISTORY: chronic cough,r05 TECHNIQUE: 2D digital imaging was performed. COMPARISON: No exams were available for comparison FINDINGS: The heart is not enlarged. The lungs are clear and well expanded. No pleural effusion seen. Mediastin al contours appear intact. IMPRESSION: Normal chest. RADIATION DOSE DELIVERED: Total DLP
== END 2021-03-05 17:48 ==
PROVIDERS: PCP Family Medicine; Visit Provider Family Medicine
DX: R05 Cough (principal)
CPT/HCPCS: 71046

== ENCOUNTER 2021-06-28 04:09 | Outpatient (CLI) | payer MEDICARE, SELFPAY ==
[2021-06-28 09:48] LABS: BUN 15 mg/dL (7-18); CREATININE 0.9 mg/dL (0.55-1.02); Calcium 8.8 mg/dL (8.5-10.1); Calculated LDL 163 mg/dL (<100); Chloride 101 mmol/L (98-107); Cholesterol 242 mg/dL (<200); Glucose 99 mg/dL (74-106); HDL Cholesterol 64 mg/dL (40-60); Potassium 4.1 mmol/L (3.5-5.1); Sodium 137 mmol/L (136-145); Triglyceride 78 mg/dL (<150)
== END 2021-06-28 04:10 | disposition home or self-care (01) ==
LOC: LBO 04:09
PROVIDERS: PCP Family Medicine; Visit Provider Family Medicine
DX: E03.9 Hypothyroidism, unspecified (principal); E78.5 Hyperlipidemia, unspecified; F32.9 Major depressive disorder, single episode, unspecified; R03.0 Elevated blood-pressure reading, without diagnosis of hypertension
CPT/HCPCS: 36415; 80048; 80061; 84443

== ENCOUNTER 2022-02-10 12:13 | Outpatient (REF) | payer MEDICARE, SELFPAY ==
[2022-02-10 12:47] LABS: Bilirubin Negative (Negative); Blood Small (Negative); Clarity Sl Cloudy (Clear); Glucose Negative (Negative); Ketones Negative (Negative); Leukocyte Esterase Large (Negative); Nitrite Positive (Negative); Urobilinogen 0.2 EU/dL (Up TO 0.2)
[2022-02-10 12:53] LABS: Bacteria Moderate HPF (Negative); C & S Indicated? Yes; Casts Negative LPF (Negative); Crystals Negative HPF (Negative); Epithelial Cells Few HPF (Negative); Mucus Negative (Negative); RBC 0-2 HPF (0-2); WBC >50 HPF (0-5)
== END 2022-02-10 12:14 | disposition home or self-care (01) ==
LOC: LBN 12:13
PROVIDERS: PCP Family Medicine; Visit Provider Nurse Practitioner Family
DX: R30.0 Dysuria (principal); N39.0 Urinary tract infection, site not specified
CPT/HCPCS: 87077; 81003; 81015; 87086; 87186

== ENCOUNTER 2022-03-02 02:38 | Outpatient (CLI) | payer MEDICARE, SELFPAY ==
[2022-03-02 11:33] LABS: Anion Gap 5.9 mmol/L (3-11); BUN 20 mg/dL (7-18); CO2 30.1 mmol/L (21.0-32.0); CREATININE 0.8 mg/dL (0.55-1.02); Calcium 8.9 mg/dL (8.5-10.1); Calculated LDL 132 mg/dL (<100); Chloride 105 mmol/L (98-107); Cholesterol 204 mg/dL (<200); Estimated GFR 78.24 (mL/min/1.73m2); Glucose 100 mg/dL (74-106); HDL Cholesterol 59 mg/dL (40-60); Potassium 4.4 mmol/L (3.5-5.1); Sodium 141 mmol/L (136-145); TSH (W/Ref FT4) 0.31 uIU/mL (0.36-3.74); Triglyceride 66 mg/dL (<150)
[2022-03-02 11:50] LABS: FREE T4 1.43 ng/dL (0.76-1.46)
== END 2022-03-02 02:39 | disposition home or self-care (01) ==
LOC: LBO 02:38
PROVIDERS: PCP Family Medicine; Visit Provider Family Medicine
DX: R03.0 Elevated blood-pressure reading, without diagnosis of hypertension (principal); Z00.00 Encounter for general adult medical examination without abnormal findings; E78.00 Pure hypercholesterolemia, unspecified; E03.9 Hypothyroidism, unspecified
CPT/HCPCS: 36415; 80048; 80061; 84439; 84443

== ENCOUNTER → 2022-03-10 01:37 | Outpatient (CLI) | payer MEDICARE, SELFPAY ==
--- NOTE | 2022-03-10 11:00 | ETT_ITS ---
APPROVED REPORT Exam: Exercise Treadmill Patient Location: Out-Patient Room/Bed: Stress Nurse: Emily Orozco RN Ordering Provider:MANUEL CROFT MD, Contact Number: [phone] BMI: 29.04 Baseline Rhythm: Sinus Rhythm Comment: T wave abnormalities in III, aVL, aVF, V2, V3, V4 Indications: Chest pain Medical History Medical History: Elevated BP w/out dx of HTN, HLD, Depression, Hypothyroid, arthralgia, migraines Cardiac Medications: None Allergies: Penicillins Cardiac Risk Factors: +Family history, HLD Previous Cardiac Procedures: None Pretest Chest Pain Characteristics: Tightness in mid chest 2-3 only noticable when i am quiet Exercise History: Indeterminate Physical Disabilities: None Lung Sounds: LCTA Heart Sounds: S1/S2 Stress Test Details Test: Exercise stress testing was performed using a Garett protocol. Rest Stress HR Resting HR Supine: 68 bpm Max Heart Rate (APMHR): 148 bpm Resting HR Standin bpm Target HR (85% APMHR): 125 bpm Max HR Achieved: 132 bpm % of APMHR: 89 Recovery HR: 75 bpm HR response to stress: Normal HR response to stress BP Resting BP Supine: 120/82 mmHg Resting BP Standin/90 mmHg Max BP: 180/100 mmHg Recovery BP: 110/84 mmHg BP response to stress: Normal blood pressure response to stress. ECG Resting ECG: Sinus Rhythm Ectopy: PAC's Comment: T wave abnormalities in III, aVL, aVF, V2, V3, V4 Stress ECG: Sinus Tachycardia ST Change: No significant ST segment changes noted Arrhythmia: None Comment: T wave abnormalities aVL, V2 Recovery ECG: Sinus Rhythm Recovery ST Change: No significant ST segment changes noted Comment: T wave abnormalities in III, aVL, aVF, V2, V3, V4 Clinical Reason for Termination: Fatigue, Target HR Achieved Stress Symptoms: None Exercise duration: 6 min52 sec Highest Stage Reached: Stage 3: 3.4 mph at 14% grade. Exercise capacity: 8.38 METs Angina Score: None Garcia Treadmill Score: 6.6 Rate Pressure Product: [id number] Stress ECG Conclusion 1. Resting electrocardiogram showed minor diffuse nondiagnostic ST-T abnormalities 2. The patient exercised on the Garett protocol and completed a workload of 8.38 METS, limited by alphonso martinez 3. Normal heart rate and blood pressure response to exercise. The patient achieved 89% of predicted heart rate for age 4. There was no electrocardiographic evidence of myocardial ischemia with exercise 5. There were no significant dysrhythmias Garcia Treadmill Score is 6.6 which is Low risk. Stress Test Summary STAGE Time (mins) Speed (mph) Grade (%) HR BP SpO2 SYMPTOMS METS Supine 68 120/82 chest tightness 2-3/10 Standing 80 120/90 1 3 1.7 10 105 120/84 4.5 2 6 2.5 12 119 138/98 7 3 9 3.4 14 128 10 1 min recovery 109 180/100 3 min recovery 80 138/84 6 min recovery 75 110/84 Patient came in today for her stress test. Did appear somewhat anxious for test. Reported chest tight ness in her mid chest at rest, 2-3/10 that was only noticible when she was quiet per patient. Pt repo rted that nothing makes it better but laying down does m emmanuel it worse. Patient stated that she had no chest discomfort while exercising during test or during recovery stages. Tolerated test well.
== END ==
PROVIDERS: PCP Family Medicine; Visit Provider Family Medicine
DX: R07.9 Chest pain, unspecified (principal); R03.0 Elevated blood-pressure reading, without diagnosis of hypertension; E78.5 Hyperlipidemia, unspecified; E03.9 Hypothyroidism, unspecified
CPT/HCPCS: 93016; 93018; 93017

== ENCOUNTER 2022-04-25 11:51 | Outpatient (CLI) | payer MEDICARE, SELFPAY ==
--- NOTE | 2022-04-25 11:30 | DI.RAD_ITS ---
Exam(s) XR KNEE RT 3V AP,LAT,NATAN EXAM: XR KNEE RT 3V AP,LAT,NATAN CLINICAL HISTORY: pain in knee. TECHNIQUE: 2D digital imaging was performed. Three views. COMPARISON: CR XR KNEE LT 1V from 03/21/2019 FINDINGS: BONES: No acute fracture is present. No bony destructive lesion is seen. JOINTS: Moderate to severe narrowing lateral femoral tibial joint with periarticular spurring. No sandrine int effusion is seen. Mild spurring articular aspect of patella. SOFT TISSUE: Normal. IMPRESSION: Moderate to severe degenerative changes lateral femoral tibial joint. DATA REPOSITORY: RADIATION DOSE DELIVERED:
== END 2022-04-25 11:52 | disposition home or self-care (01) ==
LOC: DIORS 11:52
PROVIDERS: PCP Family Medicine; Referring Provider Family Medicine; Visit Provider Physician Assistant Surgical
DX: M17.11 Unilateral primary osteoarthritis, right knee (principal)
CPT/HCPCS: 20610; 73562; J1040

== ENCOUNTER 2022-10-11 02:33 | Outpatient (CLI) | payer MEDICARE, SELFPAY ==
[2022-10-11 16:36] LABS: TSH (W/Ref FT4) 1.37 uIU/mL (0.36-3.74)
== END 2022-10-11 02:34 | disposition home or self-care (01) ==
LOC: LBO 02:34
PROVIDERS: PCP Family Medicine; Visit Provider Family Medicine
DX: E03.9 Hypothyroidism, unspecified (principal)
CPT/HCPCS: 36415; 84443

== ENCOUNTER → 2023-05-24 01:48 | Outpatient (CLI) | payer MEDICARE, SELFPAY ==
--- NOTE | 2023-05-24 07:00 | DI.CT_ITS ---
Exam(s) CT SINUS WO EXAM: CT SINUS WO CLINICAL HISTORY: sinusitis, headache,j01.00,g44.52. Evaluate for sinusitis. TECHNIQUE: Imaging Protocol: Axial computed tomography images with coronal and sagittal reformatted images were created and reviewed. COMPARISON: No exams were available for comparison FINDINGS: Frontal sinuses: Normally aerated. Ethmoid air cells: Opacification of a single ethmoid air cell. Mild mucosal thickening. Maxillary sinuses: Normally aerated. Sphenoid sinus: Minimal amount of mucous retention in the posterior left sphenoid sinus. Ostiomeatal complexes: Patent. Nasal cavity: Septum is slightly deviated toward the left. Lisy bullosa of both middle turbinate s. Visualized regional soft tissues: No acute findings. Orbits: Unremarkable. Bones: Unremarkable. Mastoid Air Cells: Normally aerated. Visualized portions of the brain: Unremarkable as visualized. IMPRESSION: Mild sinus disease. RADIATION DOSE DELIVERED: Total DLP DATA REPOSITORY: All CT scans at this facility are submitted to the National Radiology Data Registry (NRDR) Dose Index Registry (DIR) with the [employer] ([employer]). RADIATION OPTIMIZATION: All CT scans at this facility use at least one of these dose optimization te chniques: automated exposure control; mA and/or kV adjustment per patient size (includes targeted exa ms where dose is matched to clinical indication); or iterative reconstruction.
== END ==
PROVIDERS: PCP Family Medicine; Visit Provider Family Medicine
DX: G44.52 New daily persistent headache (NDPH) (principal); J01.00 Acute maxillary sinusitis, unspecified
CPT/HCPCS: 70486

== ENCOUNTER 2023-07-05 04:47 | Outpatient (CLI) | payer MEDICARE, SELFPAY ==
[2023-07-05 13:40] LABS: Abs Immature Grans 0.02 10^3/uL (0.0-0.06); Absolute Basophil Count 0.07 10^3/uL (0.0-0.2); Absolute Eosinophil Count 0.22 10^3/uL (0.0-0.7); Absolute Lymphocyte Count 1.83 10^3/uL (1.2-3.4); Absolute Monocyte Count 0.54 10^3/uL (0.1-0.8); Absolute Neutrophil Count 3.87 10^3/uL (1.2-6.7); Basophils % 1.1; Eosinophils % 3.4; HCT 41.9 % (36.0-46.0); HGB 14.3 g/dL (11.2-15.7); Immature Grans % 0.3; Lymphocytes % 27.9; MCH 30.8 pg (27.0-33.0); MCHC 34.1 % (32.0-36.0); MCV 90 fL (80-95); Monocytes % 8.2; Neutrophils % 59.1; Platelet Count 298 10^3/uL (130-400); RBC 4.64 10^6/uL (3.93-5.22); RDW-SD 43.4 fL; WBC 6.55 10^3/uL (4.4-10.8)
[2023-07-05 13:42] LABS: ESR 8 mm/hr (0-30)
== END 2023-07-05 04:48 | disposition home or self-care (01) ==
LOC: LBO 04:48
PROVIDERS: PCP Family Medicine; Visit Provider Family Medicine
DX: G44.52 New daily persistent headache (NDPH) (principal); J01.00 Acute maxillary sinusitis, unspecified
CPT/HCPCS: 36415; 85652; 85025

== ENCOUNTER 2023-11-23 05:16 | Outpatient (CLI) | payer MEDICARE, SELFPAY ==
[2023-11-23 12:52] LABS: Anion Gap 11.2 mmol/L (3-11); BUN 24 mg/dL (7-18); CO2 23.8 mmol/L (21.0-32.0); CREATININE 0.8 mg/dL (0.55-1.02); Calculated LDL 121 mg/dL (<100); Chloride 104 mmol/L (98-107); Cholesterol 199 mg/dL (<200); Estimated GFR 77.27 (mL/min/1.73m2); Glucose 98 mg/dL (74-106); HDL Cholesterol 62 mg/dL (40-60); Potassium 4.1 mmol/L (3.5-5.1); Sodium 139 mmol/L (136-145); TSH (W/Ref FT4) 0.59 uIU/mL (0.36-3.74); Triglyceride 80 mg/dL (<150)
[2023-11-23 18:59] LABS: CRP, High Sensitivity 2.06 mg/L (See Note)
[2023-11-25 12:24] LABS: Lipoprotein (a) <7 nmol/L (<75)
== END 2023-11-23 05:17 | disposition home or self-care (01) ==
LOC: LOS 05:16
PROVIDERS: PCP Family Medicine; Visit Provider Family Medicine
DX: Z13.6 Encounter for screening for cardiovascular disorders (principal); E78.00 Pure hypercholesterolemia, unspecified; E03.8 Other specified hypothyroidism; E03.9 Hypothyroidism, unspecified; I10 Essential (primary) hypertension; R03.0 Elevated blood-pressure reading, without diagnosis of hypertension
CPT/HCPCS: 36415; 80048; 80061; 83695; 86141; 84443

== ENCOUNTER 2024-12-06 01:15 | Outpatient (CLI) | payer MEDICARE, SELFPAY ==
[2024-12-06 13:13] LABS: Anion Gap 7.4 mmol/L (3-11); BUN 22 mg/dL (7-18); CO2 27.6 mmol/L (21.0-32.0); CREATININE 0.9 mg/dL (0.55-1.02); Calculated LDL 137 mg/dL (<100); Chloride 103 mmol/L (98-107); Cholesterol 216 mg/dL (<200); Estimated GFR 66.67 (mL/min/1.73m2); Glucose 99 mg/dL (74-106); HDL Cholesterol 68 mg/dL (>or=50); Potassium 3.7 mmol/L (3.5-5.1); Sodium 138 mmol/L (136-145); TSH (W/Ref FT4) 0.64 uIU/mL (0.36-3.74); Triglyceride 56 mg/dL (<150)
== END 2024-12-06 01:16 | disposition home or self-care (01) ==
PROVIDERS: PCP Family Medicine; Visit Provider Family Medicine
DX: E03.9 Hypothyroidism, unspecified (principal); E03.8 Other specified hypothyroidism; Z13.6 Encounter for screening for cardiovascular disorders; E78.00 Pure hypercholesterolemia, unspecified; I10 Essential (primary) hypertension; R03.0 Elevated blood-pressure reading, without diagnosis of hypertension
CPT/HCPCS: 36415; 80048; 80061; 84443

== ENCOUNTER 2024-12-30 13:38 | Outpatient (CLI) | payer MEDICARE, SELFPAY ==
--- NOTE | 2024-12-30 13:30 | DI.RAD_ITS ---
Exam(s) XR STANDING ALIGNMENT EXAM: XR STANDING ALIGNMENT CLINICAL HISTORY: DJD R KNEE. TECHNIQUE: 2D digital imaging was performed. Standing AP views were performed from the pelvis through the ankles. COMPARISON: CR XR STANDING ALIGNMENT from 03/21/2019 CR XR KNEE RT 3V AP,LAT,NATAN from 04/25/2022 FINDINGS: BONES: No acute fracture is present. No bony destructive lesion is seen. Leg length discrepancy: No significant overall leg length discrepancy. JOINTS: Knees: Stable appearance of left knee prosthesis. Narrowing periarticular spurring at the lateral femoral tibial joint of the left knee causing valgus angulation. The ankle joints are unremarkable. The hip joints are unremarkable. SOFT TISSUE: Normal. IMPRESSION: Degenerative changes lateral femoral tibial joint space of the right knee.. No significant leg length discrepancy. DATA REPOSITORY: RADIATION DOSE DELIVERED:
== END 2024-12-30 13:39 | disposition home or self-care (01) ==
LOC: DIORS 13:38
PROVIDERS: PCP Family Medicine; Referring Provider Family Medicine; Visit Provider Student in an Organized Health Care Education/Training Program
DX: M17.11 Unilateral primary osteoarthritis, right knee (principal); Z96.652 Presence of left artificial knee joint
CPT/HCPCS: 99213; 20610; J1010; 77073

== ENCOUNTER → 2025-02-24 13:39 | Outpatient (BNVA) | payer MEDICARE, SELFPAY | PROVIDERS: PCP Family Medicine; Referring Provider Family Medicine; Visit Provider Student in an Organized Health Care Education/Training Program | DX: M17.11 Unilateral primary osteoarthritis, right knee (principal) | CPT/HCPCS: 99213 ==

== ENCOUNTER 2025-06-17 10:58 | Outpatient (CLI) | payer MEDICARE, SELFPAY ==
--- NOTE | 2025-06-17 10:45 | RT.EKG_ITS ---
APPROVED REPORT Exam: Resting ECG Reason for Exam: pre op Patient Location: O HR:60 bpm ECG Measurements Heart Rate 60 AXIS [place] 158 P 16 QRSd 108 QRS -9 QT 479 T -2 QTc 479 Conclusion Sinus rhythm...normal P axis, V-rate 50- 99 Borderline T abnormalities, diffuse leads...T flat/neg
== END 2025-06-17 10:59 | disposition home or self-care (01) ==
LOC: DI.CM 10:59
PROVIDERS: PCP Family Medicine; Visit Provider Family Medicine
DX: Z01.818 Encounter for other preprocedural examination (principal)
CPT/HCPCS: 93010